=== PATIENT | female | born 1990 | race African-American/Black ===

== ENCOUNTER 2020-06-03 10:08 | Outpatient (CLI) | payer OTHER, MEDICAID, SELFPAY ==
[2020-06-03 11:23] LABS: HIV 1/2 Ab P24 Ag Result Negative (Negative)
[2020-06-03 11:40] LABS: Hepatitis B Surface Antigen Negative (Negative)
[2020-06-03 11:57] LABS: Hepatitis C Virus Antibody Negative (Negative)
[2020-06-03 11:58] LABS: Rapid Plasma Reagin Non-Reactive (NonReactive)
[2020-06-07 13:47] LABS: HSV 1 IgM Screen Negative (Negative); HSV 2 IgM Screen Negative (Negative)
[2020-06-07 16:21] LABS: Testosterone Free 6.8 pg/mL (0.1-6.4); Testosterone Total 41 ng/dL (2-45)
== END 2020-06-03 10:09 | disposition home or self-care (01) ==
LOC: ANHLAB 10:14
PROVIDERS: Visit Provider Student in an Organized Health Care Education/Training Program
DX: L68.9 Hypertrichosis, unspecified (principal); Z11.3 Encounter for screening for infections with a predominantly sexual mode of transmission
CPT/HCPCS: 36415; 84402; 84403; 86592; 86695; 86696; 86703; 86803; 87340; G0432

== ENCOUNTER 2021-03-01 08:19 | Outpatient (CLI) | payer OTHER, MEDICAID, SELFPAY ==
--- NOTE | ~2021-03-01 | US_ITS ---
EXAMINATION: US OB <=14 wk fetus w TV DATE: 03/01/2021 09:51 INDICATION: Irregular menstruation. TECHNIQUE: Real-time transabdominal pelvic ultrasound was performed. COMPARISON: None. FINDINGS: The uterus measures 12.7 x 7.2 x 6.4 cm. There is an intrauterine gestational sac. A yolk sac is shayne ntified. The crown rump length measures 4 mm, which correlates with an estimated gestational a ge of 6 weeks and 0 day(s) (+/-) 4 day(s). heart motion is not identified on m-mode Doppler, wh ich is normal at this size. The right ovary is not visualized. The left ovary measures 3.9 x 3.3 x 3. 2 cm. There is no free fluid in the pelvis. IMPRESSION: 1. Single intrauterine gestation with estimated date of delivery of 10/25/2021. Reviewed, dictated and finalized at location B. [employer]
[2021-03-01 09:33] LABS: Hemoglobin A1C 5.5 % (<5.7)
[2021-03-01 09:44] LABS: Cholesterol 172 mg/dL (0-200); HDL Direct 41 mg/dL; Triglycerides 69 mg/dL (<150)
[2021-03-01 09:50] LABS: LDL Cholesterol Direct 94 mg/dL
[2021-03-01 10:09] LABS: Thyroid Stimulating Hormone 0.795 uIU/mL (0.465-4.680)
[2021-03-03 22:24] LABS: FSH <0.7 mIU/mL (***); LH <0.2 mIU/mL (***); Progesterone 10.3 ng/mL (***)
[2021-03-06 07:50] LABS: Testosterone Total 68 ng/dL (2-45)
== END 2021-03-01 08:20 | disposition home or self-care (01) ==
LOC: ANHIMG 08:20
PROVIDERS: Visit Provider Obstetrics & Gynecology
DX: O34.80 Maternal care for other abnormalities of pelvic organs, unspecified trimester (principal); N83.209 Unspecified ovarian cyst, unspecified side; Z3A.00 Weeks of gestation of pregnancy not specified
CPT/HCPCS: 36415; 76801; 76817; 80061; 83001; 83002; 83036; 84144; 84403; 84443; 84702